=== PATIENT | male | born 1930 | race Caucasian/White ===

== ENCOUNTER 2018-02-23 11:20 | Observation (INO) | payer MEDICARE ==
[~2018-02-23] VITALS: Ht 152.4 cm; Wt 77.1 kg
[~2018-02-23 11:20] MED LIST: ALBUTEROL SULFAT2 MG PO; ALBUTEROL SULFAT4 MG PO; ASPIR 8181 MG PO; ASPIRIN; ASPIRIN81 MG PO; AUGMENTIN 875-1 EACH PO; CALCIUM; CALCIUM CARBON500 MG PO; CALCIUM600 MG PO; CENTRUM SILVER; CENTRUM SILVER1 EAC3 PO; CYMBALTA60 MG PO; DEXILANT60 MG PO; DIOVAN HCT; DIOVAN HCT 1601 EAC2; DIOVAN HCT 1601 EACH PO; DIVALPROEX SOD250 M1 PO; DIVALPROEX SOD250 MG PO; DOXAZOSIN; DOXYCYCLINE HY100 MG PO; GEMFIBROZIL; GEMFIBROZIL600 MG PO; HYDROCHLOROTHIAZIDE; HYDROCODON-ACE1 EAC4 PO; LEVOTHYROXIN; LEVOTHYROXINE50 MCG PO; LEVOXYL50 MCG PO; LEXAPRO; MECLIZINE HCL12.5 MG PO; NABUMETONE; NABUMETONE750 MG PO; NORCO 7.5-3251 EACH PO; OYSTER SHELL C1 EACH PO; PANTOPRAZOLE SO40 MG PO; PROAIR HFA INH8.5 GM INH; PROMETHAZINE-COD5 ML PO; SYMBICORT 16010.2 GM INH; SYMBICORT 16010.2 GM PO; TERAZOSIN HCL5 MG PO; ULTRACET TABLE1 EACH PO; VESICARE5 MG PO; VITAMIN B-121000 MCG PO; Z.0.ASPIRIN CHEW81 M; Z.0.CALCIUM600 MG; Z.0.CYMBALTA30 MG; Z.0.GEMFIBROZIL600 M; Z.0.LEVOXYL50 MCG; Z.0.NABUMETONE750 MG; Z.1.DOXAZOSIN MESYLA; Z.3.CENTRUM SILVER1
--- OUTSIDE RECORDS SUMMARY | 2018-02-23 11:22 | XMS REPORT ---
Author Author [facility] Address Unknown Phone Unavailable Care Team Providers Care Bridge Manager Name Role Phone Unavailable Unavailable Payers Payer Name Policy Type Policy Number Effective Date Expiration Date Problems This patient has no known problems. Allergies, Adverse Reactions, Alerts Allergy Name Allergy Type Status Severity Reaction(s) Onset Date Inactive Date Treating Clinician Comments Sulfa (Sulfonamide Antibiotics) DA Active 2017-11-13 00:00:00 OXYBUTININ DA Active SV 2017-11-13 00:00:00 SULFA DRUGS DA Active SV 2017-11-13 00:00:00 TAPE PLASTIC DA Active 2017-11-13 00:00:00 Medications This patient has no known medications.
[2018-02-23 11:51] LABS: BASOPHILS # (AUTO) 0.1 (0.0-0.1); EOSINOPHILS # (AUTO) 0.3 (0.0-0.4); EOSINOPHILS % 2.4 % (0.0-6.0); HEMOGLOBIN 11.6 g/dL (14.0-18.0); LYMPHOCYTES # (AUTO) 2.2 (1.0-3.2); LYMPHOCYTES % 19.6 % (18.0-39.1); MEAN CORPUSCULAR HEMOGLOBIN 30.2 pg (28-32); MEAN CORPUSCULAR HGB CONC 33.1 g/dL (31-35); MEAN CORPUSCULAR VOLUME 91.1 fL (81-99); MONOCYTES # (AUTO) 0.8 (0.2-0.8); MONOCYTES % 7.3 % (4.4-11.3); NEUTROPHILS # (AUTO) 7.3 (2.1-6.9); NEUTROPHILS % 64.1 % (38.7-80.0); PLATELET COUNT 264 x10e3/uL (140-360); RED BLOOD COUNT 3.84 x10e6/uL (4.3-5.7); RED CELL DISTRIBUTION WIDTH 13.4 % (11.7-14.4)
[2018-02-23] MEDS ORDERED: ASPIRIN 81 MG CHEW TAB PO ONE (12:00)
[2018-02-23 12:17] LABS: ALBUMIN 3.2 g/dL (3.5-5.0); ALBUMIN/GLOBULIN RATIO 1.1 (0.8-2.0); ANION GAP 14.1 mmol/L (8-16); CREATININE, SERUM 1.35 mg/dL (0.72-1.25); MAGNESIUM 2.2 MG/DL (1.3-2.1); POTASSIUM 4.1 mmol/L (3.5-5.1)
[2018-02-23 12:24] LABS: CREATINE KINASE MB 3.1 ng/mL (0-5.0)
[2018-02-23 12:36] LABS: INR 0.95; PROTHROMBIN TIME 13.6 seconds (11.9-14.5)
[2018-02-23 12:37] LABS: PARTIAL THROMBOPLASTIN TIME 29.9 seconds (23.8-35.5)
[2018-02-23 12:52] LABS: LYMPHOCYTES % (MANUAL) 27 % (19-48); MONOCYTES % (MANUAL) 7 % (3.4-9.0); NEUTROPHILS % (MANUAL) 66 % (40-74)
[2018-02-23 12:53] LABS: PLATELET ESTIMATE ADEQUATE; PLATELET MORPHOLOGY COMMENT NORMAL; RBC MORPHOLOGY COMMENT NORMAL
--- NOTE | 2018-02-23 13:52 | Diagnostic Imaging Report ---
Examination: Single AP view of the chest. COMPARISON: No prior images are available for review. Reports from prior CT scan of the chest and CT-guided biopsy from 2016 were available for review. INDICATION: Chest pain, patient reports history of lung cancer DISCUSSION: Lungs are well-inflated. 3.6 cm streaky opacity in the left upper lung. No additional airspace consolidation, pleural effusion, or pneumothorax. Tortuous thoracic aorta with atherosclerotic calcification. Normal heart size. No overt pulmonary edema. No acute osseous abnormality. IMPRESSION: 3.6 cm streaky opacity in the left upper lung presumably corresponds to the reported history of lung cancer. No acute cardiopulmonary abnormality. Signed by: Dr. Burton Thomas M.D. on 02/23/2018 1:49 PM
[2018-02-23] MEDS ORDERED: SODIUM CHLORIDE 0.9% 500ML 500 ML IV ONE (18:15)
[2018-02-23] MEDS ORDERED: ASPIRIN 81 MG ENTERIC COATED PO ONE (19:49)
--- NOTE | 2018-02-23 20:00 | Diagnostic Imaging Report ---
EXAM: CT Chest WITH contrast 02/23/2018 6:09 PM INDICATION: ^PE protocol ^[id number] ^[id number] COMPARISON: Chest radiograph 02/23/2018, 03/23/2015 TECHNIQUE: Spiral CT images of the chest were performed from the lung apices through the level of the adrenal glands after the IV contrast administration. Thin section reconstructions were obtained with special concentration on the pulmonary arteries. IV CONTRAST: 100 mL Isovue-370 ORAL CONTRAST: None COMPLICATIONS: None RADIATION DOSE: Total DLP: 527.5 mGy*cm Estimated effective dose: (DLP x 0.015 x size factor) mSv CTDIvol has been reviewed. It is below the limits set by the Radiation Protocol Committee (RPC). FINDINGS: LINES/ TUBES: None. PULMONARY ARTERIES: No filling defects are identified in the main, right or left pulmonary arteries to their segmental and subsegmental levels, to suggest pulmonary embolism. The main pulmonary artery is normal in size. LUNGS AND AIRWAYS: A 3.7 x 1.6 cm mildly irregular left upper lobe soft tissue consolidation/mass with associated adjacent septal thickening and mild volume loss. The mass is abutting the fissure. There is also an additional soft tissue nodule in the superior segment of the left lower lobe abutting the inferior surface of the fissure, measuring 1.3 cm on series 3, image 28. Pleural-based irregular shaped groundglass opacity in the right upper lobe measuring 1.4 x 1.1 cm on series 3, image 36. Right middle lobe calcified granuloma. Mild bilateral centrilobular emphysema. Mild bilateral central peribronchial wall thickening without significant bronchiectasis. PLEURA: The pleural spaces are clear. HEART AND MEDIASTINUM: The thyroid gland is normal. Few subcentimeter nonspecific mediastinal lymph nodes. The heart is normal in size. There is no pericardial effusion. Diffuse atherosclerotic calcifications of the coronary arteries, aortic valve, and thoracic aorta. Mild ectasia of the ascending thoracic aorta (3.9 cm). The thoracic aorta and pulmonary arteries are unremarkable. UPPER ABDOMEN: Moderate bilateral perinephric fat stranding with associated cortical thinning. Cholecystectomy. The adrenal glands are normal. BONES: Multilevel degenerative changes of the thoracic spine. SOFT TISSUES: Unremarkable. IMPRESSION: 1. No pulmonary embolism. Normal size of the pulmonary artery. 2. A 3.7 cm left upper lobe mass corresponds to the abnormality seen on recent chest radiograph and not seen on the most remote exam. Despite this may represent consolidation in the region of previously noted left pigtail catheter, malignancy is high in the differential. Recommend further evaluation with PET/CT and pulmonary consultation. 3. Right upper lobe pleural-based groundglass opacity is indeterminate and may be inflammatory or neoplastic. Pulmonary infarct cannot be excluded and may relate to microembolic disease since no filling defects are seen in the right upper lobe pulmonary artery branches. Recommend re-evaluation on anatomic images of PET/CT. 4. Bilateral emphysema. Signed by: Dr. Mary Gudino M.D. on 02/23/2018 7:57 PM
[2018-02-23] MEDS ORDERED: SODIUM CHLORIDE 0.9% 50ML 50 ML ONE (20:08)
[2018-02-23] MEDS ORDERED: IOPAMIDOL 370 MG/ML 200 ML INFUS..BTL INJ ONE (20:09)
[2018-02-23] MEDS ORDERED: MORPHINE SULFATE 2 MG/ML SYR IV NR (21:00)
[2018-02-23] MEDS ORDERED: MORPHINE SULFATE INJ 4 MG/ML INJ ONE (21:06)
[2018-02-23] MEDS ORDERED: MECLIZINE HCL 12.5 MG TAB PO PRN (22:30)
[2018-02-23] MEDS ORDERED: PROMETHAZINE/CODEINE 5 ML UDC PO PRN (22:30)
[2018-02-23] MEDS ORDERED: ENOXAPARIN SOD INJ 40 MG/0.4 ML SYR SC SCH (22:32)
[2018-02-23] MEDS ORDERED: IRBESARTAN150 MG PO (23:03)
[2018-02-23] MEDS ORDERED: LEVOTHYROXINE75 MCG PO (23:05)
[2018-02-23] MEDS ORDERED: BREO INH (23:05)
[2018-02-23] MEDS ORDERED: HEMOCYTE PLUS1 EACH PO (23:06)
[2018-02-23] MEDS ORDERED: OMEPRAZOLE40 MG PO (23:06)
--- NOTE | 2018-02-23 23:08 | History and Physical ---
PRIMARY CARE PHYSICIAN: Dr. Sanchez CHIEF COMPLAINT: Chest pain. HISTORY OF PRESENT ILLNESS: This is an 87-year-old man with a history of pneumonia and hypertension, now developing left-sided chest pain. He denies any radiation, shortness of breath, dizziness, nausea or vomiting. Last stress test was 7 years ago, which was negative. Patient did have a recent upper respiratory tract infection about a week ago, went to an urgent care facility and given antibiotics. He has been coughing excessively with subsequent associated chest pain. PAST MEDICAL HISTORY: Recurrent pneumonia, chronic kidney disease stage 3, hypertension, hyperlipidemia, hypothyroidism, hearing deficit, cigarette use, history of COPD, carcinoma of the left lung, status post radiation treatment, GERD, depression, BPH, right-sided pleural effusion. PAST SURGICAL HISTORY: Cholecystectomy, cataract surgery, and radiation treatment for left lung cancer. ALLERGIES: PER ELECTRONIC MEDICAL RECORD. FAMILY/SOCIAL HISTORY: Patient is , has 4 children. No alcohol or illicits. Quit cigarettes. MEDICATIONS: Per electronic medical record. REVIEW OF SYSTEMS: Denies any fever, chills, sweats, nausea, vomiting, diarrhea, headache, dizziness, leg pain. PHYSICAL EXAM VITAL SIGNS: Reviewed. GENERAL: A tired-appearing man resting in bed. HEENT: Anicteric. CARDIOVASCULAR: Normal S1 and S2. LUNGS: Moderate breath sounds. ABDOMEN: Soft, nontender, and nondistended. EXTREMITIES: No edema or calf tenderness. NEUROLOGICAL: Alert and oriented x3. Moves extremities. SKIN: Dry. MUSCULOSKELETAL: Left chest wall is tender to palpation. LABS: Reviewed. MEDICATIONS: Reviewed. ASSESSMENT AND PLAN: This is an 87-year-old man. 1. Atypical chest pain. 2. Likely musculoskeletal chest pain. 3. Right bundle-branch block. 4. Chronic kidney disease, stage 3. 5. Chronic obstructive pulmonary disease. 6. History of left lung cancer. 7. Hypothyroidism. 8. Hypertension. 9. Hyperlipidemia. PLAN 1. Trend cardiac enzymes. 2. Patient's symptoms likely related to musculoskeletal pain. 3. Obtain lipid panel. 4. Treat cough. 5. Restart home medication. 6. Use Lovenox for DVT prophylaxis. 7. Disposition: Obtain troponin in the morning. If negative, plan to transition home and will need treatment for musculoskeletal chest pain at that time. Job#: [id number] CQ
[2018-02-23] MEDS ORDERED: ALBUTEROL SULFAT2 MG PO (23:10)
[2018-02-23] MEDS ORDERED: MYRBETRIQ50 MG PO (23:10)
[2018-02-23] MEDS ORDERED: PROAIR HFA INH8.5 GM INH (23:10)
[2018-02-23] MEDS ORDERED: DIVALPROEX SOD250 M1 PO (23:10)
[2018-02-24 01:12] LABS: CHOL/HDL RATIO 4.1 (3.9-4.7)
[2018-02-24 01:20] LABS: CREATINE KINASE MB 2.5 ng/mL (0-5.0)
[2018-02-24 01:51] VITALS: BP 165/79
[2018-02-24 04:04] VITALS: BP 165/79
[2018-02-24 05:32] LABS: CHOL/HDL RATIO 3.8 (3.9-4.7)
[2018-02-24 05:36] LABS: CREATINE KINASE MB 2.3 ng/mL (0-5.0)
[2018-02-24] MEDS ORDERED: LEVOTHYROXINE SODIUM 50 MCG TAB PO SCH (06:00)
[2018-02-24] MEDS ORDERED: LEVOTHYROXINE SODIUM 75 MCG TAB PO SCH (06:00)
[2018-02-24] MEDS ORDERED: MELOXICAM7.5 MG PO (07:48)
[2018-02-24 07:57] VITALS: BP 147/79
[2018-02-24] MEDS ORDERED: ASPIRIN 325 MG TAB EC PO SCH (09:00)
[2018-02-24] MEDS ORDERED: PANTOPRAZOLE SOD 40 MG TABEC PO SCH (09:00)
[2018-02-24] MEDS ORDERED: ALBUTEROL SULFATE 2 MG TAB PO SCH (09:00)
[2018-02-24] MEDS ORDERED: TERAZOSIN HCL 5 MG CAP PO SCH (09:00)
[2018-02-24] MEDS ORDERED: SOLIFENACIN SUCCINATE 5 MG TAB PO SCH (09:00)
[2018-02-24] MEDS ORDERED: BUDESONIDE/FORMOTEROL 160/4.5MCG INHALER INH SCH (09:00)
[2018-02-24] MEDS ORDERED: OYST-CAL-D 500MG TABLET PO SCH (09:00)
[2018-02-24] MEDS ORDERED: HYDROCHLOROTHIAZIDE 25 MG TAB PO SCH (09:00)
[2018-02-24] MEDS ORDERED: ASPIRIN 81 MG CHEW TAB PO SCH (09:00)
[2018-02-24] MEDS ORDERED: GEMFIBROZIL 600 MG TAB PO SCH (09:00)
[2018-02-24] MEDS ORDERED: BENZONATATE 100 MG CAP PO SCH (09:00)
[2018-02-24] MEDS ORDERED: VALSARTAN 160 MG TAB PO SCH (09:00)
== END 2018-02-24 10:27 | disposition home or self-care (01) ==
LOC: ER 11:20 → INTOOBSV 20:21 → ERHOLD 20:21 → MED/SURG 22:49 → IMCU 23:09
PROVIDERS: ADMIT Internal Medicine; ATTEND Internal Medicine
DX: R07.89 Other chest pain (principal); I45.10 Unspecified right bundle-branch block; I12.9 Hypertensive chronic kidney disease with stage 1 through stage 4 chronic kidney disease, or unspecified chronic kidney disease; N18.3 Chronic kidney disease, stage 3 (moderate); J44.9 Chronic obstructive pulmonary disease, unspecified; Z85.118 Personal history of other malignant neoplasm of bronchus and lung; E78.5 Hyperlipidemia, unspecified; E03.9 Hypothyroidism, unspecified
CPT/HCPCS: 36415 ×2; 71045; 71260; 80053; 80061 ×2; 82550 ×2; 82553 ×2; 83735; 83880; 84484 ×2; 85025; 85610; 85730; 93005; 99284; G0378 ×2; J1650; J2270; J7040; Q9967; S0164

== ENCOUNTER 2018-05-30 12:09 | Emergency (ER) | payer MEDICARE ==
[~2018-05-30] VITALS: Ht 152.4 cm; Wt 77.1 kg
[~2018-05-30 12:09] MED LIST changes: +BREO INH; +HEMOCYTE PLUS1 EACH PO; +IRBESARTAN150 MG PO; +LEVOTHYROXINE75 MCG PO; +MELOXICAM7.5 MG PO; +MYRBETRIQ50 MG PO; +OMEPRAZOLE40 MG PO
[2018-05-30 13:04] LABS: STREPTOCOCCUS GRP A ANTIGEN NEGATIVE (NEGATIVE)
[2018-05-30 13:13] LABS: INFLUENZAE A&B ANTIGEN (RAPID) NEGATIVE (NEGATIVE)
--- NOTE | 2018-05-30 14:12 | Diagnostic Imaging Report ---
EXAMINATION: CHEST 2 VIEWS INDICATION: Pulmonary mass ^cough ^[id number] ^[id number] COMPARISON: CTA chest 02/23/2018 FINDINGS: PA and lateral views TUBES and LINES: None. LUNGS: Diffuse hyperinflation consistent with COPD left upper lobe mass measures approximately 1.7 x 3.5 cm in the coronal plane. Nodule immediately inferior measures 9 mm. Both are grossly stable. There is mild reticulation in the base of the left lung. No correlate on lateral image. No new findings in the right lung PLEURA: No pleural effusion or pneumothorax. HEART AND MEDIASTINUM: The heart is normal in size. Stable aortic ectasia. BONES AND SOFT TISSUES: No focal osseous lesions. Soft tissues are unremarkable. UPPER ABDOMEN: No free air under the diaphragm. IMPRESSION: Left upper lobe nodules are grossly stable. New reticulation in the base of the left lung may be the result of pneumonitis. Stable pulmonary hyperinflation consistent with COPD. Signed by: Dr. Elly Joshi MD on 05/30/2018 2:08 PM
[2018-05-30 14:57] VITALS: BP 151/77
== END 2018-05-30 15:25 | disposition home or self-care (01) ==
LOC: ER 12:09
DX: R50.9 Fever, unspecified (principal); R05 Cough; J20.9 Acute bronchitis, unspecified; J44.9 Chronic obstructive pulmonary disease, unspecified; K21.9 Gastro-esophageal reflux disease without esophagitis; F41.9 Anxiety disorder, unspecified; Z85.118 Personal history of other malignant neoplasm of bronchus and lung
CPT/HCPCS: 71046; 83518; 87070; 87400; 99283

== ENCOUNTER 2019-06-26 21:22 | Emergency (ER) | payer MEDICARE ==
[~2019-06-26] VITALS: Ht 152.4 cm; Wt 77.1 kg
[2019-06-26] MEDS ORDERED: ACETAMINOPHEN 325 MG TAB PO STA (21:29)
[2019-06-26] MEDS ORDERED: LIDOCAINE 1% W/EPINEPHRINE 20 ML VIAL INJ ONE (21:30)
--- NOTE | 2019-06-26 21:47 | NUR ---
SPOKE WITH DR. SOTO REGARDING XRAY. VERBAL ORDER FOR XRAY TO R/O FOREIGN OBJECT. REPEATED ORDER TO VERIFY ORDER. ER VERBALIZED ORDER AT THIS TIME.
--- NOTE | 2019-06-26 21:58 | NUR ---
ER VERBALIZED HE WAS GOING TO CANCEL THE X-RAY. NO NEW ORDERS AT THIS TIME.
--- NOTE | 2019-06-26 22:10 | NUR ---
Patient cleaned and dressed with Kerlex.
== END 2019-06-26 22:15 | disposition home or self-care (01) ==
LOC: ER 21:22
DX: S51.811A Laceration without foreign body of right forearm, initial encounter (principal); W01.198A Fall on same level from slipping, tripping and stumbling with subsequent striking against other object, initial encounter; Y92.008 Other place in unspecified non-institutional (private) residence as the place of occurrence of the external cause
CPT/HCPCS: 99283

== ENCOUNTER 2019-07-04 10:16 | Emergency (ER) | payer MEDICARE ==
[~2019-07-04] VITALS: Ht 152.4 cm; Wt 77.1 kg
[2019-07-04] MEDS ORDERED: NEOMYCIN/POLYMYX/BACITR OINT 0.9 GM PKT TOP ONE (10:45)
== END 2019-07-04 10:45 | disposition home or self-care (01) ==
LOC: ER 10:16
DX: Z48.02 Encounter for removal of sutures (principal); L03.113 Cellulitis of right upper limb; I10 Essential (primary) hypertension; E78.5 Hyperlipidemia, unspecified; J44.9 Chronic obstructive pulmonary disease, unspecified; F41.9 Anxiety disorder, unspecified; Z85.828 Personal history of other malignant neoplasm of skin; Z85.118 Personal history of other malignant neoplasm of bronchus and lung
CPT/HCPCS: 99284